=== PATIENT | male | born 1970 | race Caucasian/White ===

== ENCOUNTER 2017-10-03 08:04 | Emergency (ER) | payer OTHER ==
[~2017-10-03] VITALS: Ht 175.3 cm; Wt 80.9 kg
[2017-10-03] MEDS ORDERED: ALEV220T26 PO (08:13)
[2017-10-03] MEDS ORDERED: KETOROLAC 60 MG/2 ML VIAL (J1885) IM ONE (08:30)
[2017-10-03] MEDS ORDERED: diazePAM 5 MG TAB PO ONE (08:30)
[2017-10-03] MEDS ORDERED: PERCOCET 5MG/325MG TAB PO ONE (09:00)
[2017-10-03] MEDS ORDERED: HYDR-3713 PO (09:23)
[2017-10-03] MEDS ORDERED: CYCL10TA PO (09:23)
[2017-10-03 09:36] VITALS: BP 123/74
== END 2017-10-03 09:35 | disposition home or self-care (01) ==
LOC: M ED 08:04
DX: M62.830 Muscle spasm of back (principal); J44.9 Chronic obstructive pulmonary disease, unspecified; F17.210 Nicotine dependence, cigarettes, uncomplicated
CPT/HCPCS: 81001; 96372; 99283; J1885

== ENCOUNTER 2025-05-31 06:56 | Day surgery (SDC) | payer OTHER ==
[~2025-05-31] VITALS: Ht 175.3 cm; Wt 76.9 kg
[~2025-05-31 06:56] MED LIST: ALEV220T26 PO; ATOR80TA59 PO; CYCL-707 PO; HYDR-3713 PO
[2025-05-31] MEDS ORDERED: LIDOCAINE 1% SDV 5 ML VIAL SC PRN (07:35)
[2025-05-31] MEDS ORDERED: LR 1,000 ML IV SCH ×2 (07:35→10:35)
[2025-05-31] MEDS ORDERED: dexAMETHasone 4 MG/ML 1 ML VIAL As Ordered ONE (08:11)
[2025-05-31] MEDS ORDERED: ONDANSETRON 4MG 2ML VIAL As Ordered ONE (08:11)
[2025-05-31] MEDS ORDERED: LIDOCAINE 2% 100 MG/5 ML SDV (FOR ANES.) As Ordered ONE (08:11)
[2025-05-31] MEDS ORDERED: MIDAZOLAM INJ 2 MG/2 ML VIAL As Ordered ONE (08:15)
[2025-05-31] MEDS ORDERED: ACETAMINOPHEN 1000MG/100ML IV BAG As Ordered ONE (09:44)
[2025-05-31] MEDS: LIDOCAINE W/EPINEPHrine 1% 20 ML VIAL As Ordered ONE (10:31)
[2025-05-31] MEDS ORDERED: HYDROMORPHONE HCL 0.5 MG/0.5 ML SYRINGE IV PRN (10:35)
[2025-05-31] MEDS ORDERED: ONDANSETRON 4MG 2ML VIAL IV PRN (10:35)
[2025-05-31 11:55] VITALS: BP 147/84; TEMP 97.2; O2SAT 99
== END 2025-05-31 12:04 | disposition home or self-care (01) ==
LOC: M SDC 06:56
PROVIDERS: ATTEND Otolaryngology
DX: L72.0 Epidermal cyst (principal); E78.5 Hyperlipidemia, unspecified; M10.9 Gout, unspecified; K21.9 Gastro-esophageal reflux disease without esophagitis; R51.9 Headache, unspecified; F17.210 Nicotine dependence, cigarettes, uncomplicated; Z79.899 Other long term (current) drug therapy
CPT/HCPCS: 11422; 88305; J0131; J1100; J2250; J2405; J3010